=== PATIENT | male | born 1955 | race Caucasian/White ===

== ENCOUNTER 2024-08-10 11:49 | Emergency (ER) | payer MEDICAID ==
[~2024-08-10] VITALS: Ht 167.6 cm; Wt 73.0 kg
[2024-08-10 11:53] VITALS: O2SAT 98
[2024-08-10 12:37] LABS: BASOPHILS % 0.7 % (0.0-2.0); EOSINOPHILS % 1.6 % (0.0-5.0); HEMATOCRIT. 46.1 % (42.0-52.0); HEMOGLOBIN. 14.9 g/dL (14.0-18.0); LYMPHOCYTES % 14.3 % (20.0-50.0); MEAN CORPUSCULAR HEMOGLOBIN 27.1 pg (28.0-32.0); MEAN CORPUSCULAR HGB CONC 32.4 g/dL (31.0-37.0); MEAN CORPUSCULAR VOLUME 83.6 fL (80.0-94.0); MEAN PLATELET VOLUME 8.5 fl (7.4-10.4); MONOCYTES % 6.1 % (2.0-8.0); NEUTROPHILS % 77.3 % (40.0-76.0); PLATELET 296 x1000/uL (130-400); RED BLOOD CELL COUNT 5.51 mill/uL (4.7-6.1); RED CELL DISTRIBUTION WIDTH 15.2 % (11.6-14.6); WHITE BLOOD COUNT 5.5 x1000/uL (4.5-11.0)
[2024-08-10 12:43] LABS: CHLORIDE 103 mEq/L (98-107); SODIUM 143 mEq/L (136-145)
[2024-08-10 12:44] LABS: CALCIUM 9.5 mg/dL (8.7-10.4); CARBON DIOXIDE 26 mEq/L (21-32)
[2024-08-10 12:49] LABS: CREATININE 1.2 mg/dL (0.6-1.3); GLUCOSE 130 mg/dL (70-105); UREA NITROGEN BLOOD 7 mg/dL (9-23)
[2024-08-10 12:51] LABS: ACETAMINOPHEN < 2 ug/mL (10-30)
[2024-08-10 12:58] LABS: ETHANOL BLOOD 290 mg/dL (<10)
[2024-08-10] MEDS: SODIUM CHLORIDE 0.9% 1,000 ML IV ONE (14:24)
[2024-08-10 19:24] LABS: CLARITY URINE CLEAR (CLEAR); COLOR URINE YELLOW (YELLOW); GLUCOSE URINE NEGATIVE (NEGATIVE); KETONES URINE TRACE (NEGATIVE); LEUKOCYTE ESTERASE URINE NEGATIVE (NEGATIVE); NITRITE URINE NEGATIVE (NEGATIVE); OCCULT BLOOD URINE NEGATIVE (NEGATIVE); PROTEIN URINE TRACE (NEGATIVE)
[2024-08-10 19:33] LABS: *AMPHETAMINES SCREEN URINE NEGATIVE (NEGATIVE); *BARBITURATES SCREEN URINE NEGATIVE (NEGATIVE); *BENZODIAZEPINES SCREEN URINE NEGATIVE (NEGATIVE); *COCAINE SCREEN URINE NEGATIVE (NEGATIVE); CANNABINOID URINE SCREEN NEGATIVE (NEGATIVE); ECSTASY MDMA SCREEN URINE NEGATIVE (NEGATIVE); METHADONE URINE SCREEN NEGATIVE (NEGATIVE); OPIATES URINE SCREEN NEGATIVE (NEGATIVE); PHENCYCLIDINE URINE SCREEN NEGATIVE (NEGATIVE)
[2024-08-10 19:39] LABS: BACTERIA URINE NONE SEEN; RBC URINE NONE SEEN /hpf (0-2); SQUAMOUS EPITHELIAL CELL URINE RARE /lpf (RARE/1+); WBC URINE 0-2 /hpf (0-2)
[2024-08-10 21:51] VITALS: BP 111/69; PULSE 93; RESP 13; TEMP 36.8; O2SAT 95
== END 2024-08-10 21:52 | disposition home or self-care (01) ==
LOC: EDBD 11:49 → ER 11:49 → EDBEDREQ 13:57 → EDBEDREQTM 13:57 → ER 21:52
DX: F10.129 Alcohol abuse with intoxication, unspecified (principal); R41.82 Altered mental status, unspecified; Z79.899 Other long term (current) drug therapy; Y90.8 Blood alcohol level of 240 mg/100 ml or more
CPT/HCPCS: 80305; 80048; 81003; 80307; 80329; 80320; 85025; 36415; 73610; 70450; 29515; 96360; 99285; J7030; Z7610 ×2; G0480